=== PATIENT | female | born 1985 | race Two or more races ===

== ENCOUNTER 2020-07-06 09:49 | Outpatient (CLI) | payer OTHER | END 2020-07-06 10:04 | disposition home or self-care (01) | LOC: RX STUDY 09:49 | PROVIDERS: ATTEND Obstetrics & Gynecology | DX: N97.8 Female infertility of other origin (principal) ==

== ENCOUNTER 2023-03-01 14:45 | Inpatient (IN) | payer OTHER ==
[~2023-03-01] VITALS: Ht 154.9 cm; Wt 2.3 kg
[2023-03-07] MEDS ORDERED: OMEPRAZOLE MAGN20 MG PO (16:44)
[2023-03-07] MEDS ORDERED: PRENATAL CAPLE1 EAC1 PO (16:44)
== END 2023-03-11 14:08 | disposition home or self-care (01) | DRG 788 ==
LOC: OB/GYN 03-07 15:31 → LDR 03-07 15:31 → O/R 03-08 18:08 → OB/GYN 03-08 19:15 → LDR 03-18 14:45
PROVIDERS: ADMIT Obstetrics & Gynecology Gynecology; ATTEND Obstetrics & Gynecology Gynecology
PROC: 3E0P7VZ Introduction of Hormone into Female Reproductive, Via Natural or Artificial Opening (ICD-10-PCS; 2023-03-07)
PROC: 4A1HXCZ Monitoring of Products of Conception, Cardiac Rate, External Approach (ICD-10-PCS; 2023-03-07)
PROC: 3E033VJ Introduction of Other Hormone into Peripheral Vein, Percutaneous Approach (ICD-10-PCS; 2023-03-08)
PROC: 10D00Z1 Extraction of Products of Conception, Low, Open Approach (ICD-10-PCS; principal; 2023-03-08 20:00)
DX: O36.8130 Decreased fetal movements, third trimester, not applicable or unspecified (principal); O36.5930 Maternal care for other known or suspected poor fetal growth, third trimester, not applicable or unspecified; O62.1 Secondary uterine inertia; Z3A.38 38 weeks gestation of pregnancy; Z37.0 Single live birth; Z20.822 Contact with and (suspected) exposure to COVID-19